=== PATIENT | female | born 1955 | race Asian ===

== ENCOUNTER → 2023-07-17 | Outpatient (CLI) | payer OTHER ==
[2023-07-18 03:06] LABS: MUMPS VIRUS IGG ANTIBODY <9.0 AU/mL (Immune >10.9); RUBELLA AB IGG-REFLAB 9.57 index (Immune >0.99)
[2023-07-18 07:07] LABS: RUBEOLA (MEASLES) IGG >300.0 AU/mL (Immune >16.4); VARICELLA ZOSTER IGG AB TITER 2833 index (Immune >165)
[2023-07-24 12:39] LABS: QUANTIFERON+, Nil Value 0.09 IU/mL; QUANTIFERON+,Mitogen Value >10.00 IU/mL; QUANTIFERON+,TB1 Antigen Value 0.88 IU/mL; QUANTIFERON+,TB2 Antigen Value 0.87 IU/mL; QUANTIFERON, TB GOLD PLUS Positive (Negative)
== END | disposition home or self-care (01) ==
LOC: LABMN 10:54
PROVIDERS: ATTEND Family Medicine
DX: Z11.3 Encounter for screening for infections with a predominantly sexual mode of transmission (principal); Z20.828 Contact with and (suspected) exposure to other viral communicable diseases; Z20.1 Contact with and (suspected) exposure to tuberculosis; Z02.89 Encounter for other administrative examinations
CPT/HCPCS: 86480; 86592; 86706; 86735; 86762; 86765; 86787; 87340; 87491; 87591